=== PATIENT | male | born 1975 | race Caucasian/White ===

== ENCOUNTER 2018-08-15 05:34 | Day surgery (SDC) | payer MEDICAID, SELFPAY ==
--- NOTE | 2018-08-08 15:26 | NURSING ---
PT STATES NOT ABLE TO COME TO [facility] TO OBTAIN LABS/EKG PRIOR TO SCHEDULED SURGERY. INFORMED SURGERY MAY BE CANCELLED BY ANESTHESIA IF ABNORMAL RESULTS, DAY OF SURGERY./ IF NOT SAFE FOR ANESTHESIA.
[2018-08-15] VITALS (10 sets, daily range): BP systolic 113–173; BP diastolic 56–98; PULSE 55–72; RESP 16–18; TEMP 36.2–36.4; O2SAT 91–98; BMI 45.1
--- NOTE | 2018-08-15 05:45 | EKG12_ITS ---
Test Reason : PRE-OP Blood Pressure : / mmHG Vent. Rate : 060 BPM Atrial Rate : 060 BPM P-R Int : 166 ms QRS Dur : 094 ms QT Int : 398 ms P-R-T Axes : 014 051 032 degrees QTc Int : 398 ms Normal sinus rhythm Normal ECG No previous ECGs available Confirmed by ALAN RAPP, NORAH ([id number]), fan mail editor JODI BRIDGES ([id number] on 08/21/2018 1:14:26 PM Referred By: Vish Alarcon Confirmed By:NORAH PHILLIPS MD
[2018-08-15 06:45] LABS: Anion Gap 11 (5-15); BUN 21 mg/dL (7-18); BUN/Creat Ratio 19.1 RATIO (10-20); Chloride 104 mmol/L (98-107); EST Glomerular Filtration Rate 77 mL/min (>60); Est Glom Filt Rate - Afr Amer 93 mL/min (>60); Estimated Creatinine Clearance 82.91 ml/min; Glucose 115 mg/dL (74-106); Potassium 4.1 mmol/L (3.5-5.1); Sodium Level 141 mmol/L (136-145)
[2018-08-15] MEDS: Cefazolin 2 GM in 0.9% Normal Saline 100 ML IV (07:48)
[2018-08-15] MEDS: Bupiv/Epi 0.5% Mpf 30 ML Vial (08:18)
--- NOTE | 2018-08-15 09:00 | PCM.IMDPSTOP ---
Immediate Post-Op Note Date of Procedure: 08/15/18 Primary Surgeon/Physician: Vish Alarcon DO customer response representative: Andrew Aden Pre-Operative Diagnosis: SAIS, AC arthrosis, possible rotator cuff tear left shoulder Post-Operative Diagnosis: SAIS, AC arthrosis, no rotator cuff tear left shoulder, Type 2 SLAP lesion Surgery/Procedure Performed:: ASD, Kranthi procedure, intra-articular debridement Description of Surgical Findings:: see op note Estimated Blood Loss: minimal Specimen's removed: none Type of Anesthesia:: General, General/Regional ASA Class: ASA3 Severe Disease - Admit VTE Documentation VTE Present on Admission: No VTE Mechan Device Prophylaxis: SCD's, Thigh High NESTOR Hose VTE Pharm Prophylaxis ordered?: No Reason prophylaxis not ordered:: Treatment Not Indicated
--- NOTE | 2018-08-15 09:04 | OP.PN_ITS ---
Immediate Post-Op Note Date of Procedure: 08/15/18 Primary Surgeon/Physician: Vish Alarcon DO tilt wall supervisor: Andrew Aden Pre-Operative Diagnosis: SAIS, AC arthrosis, possible rotator cuff tear left shoulder Post-Operative Diagnosis: SAIS, AC arthrosis, no rotator cuff tear left shoulder, Type 2 SLAP lesion Surgery/Procedure Performed:: ASD, Kranthi procedure, intra-articular debridement Description of Surgical Findings:: see op note Estimated Blood Loss: minimal Specimen's removed: none Type of Anesthesia:: General, General/Regional ASA Class: ASA3 Severe Disease - Admit VTE Documentation VTE Present on Admission: No VTE Mechan Device Prophylaxis: SCD's, Thigh High NESTOR Hose VTE Pharm Prophylaxis ordered?: No Reason prophylaxis not ordered:: Treatment Not Indicated
--- NOTE | 2018-08-15 09:05 | PCM.OP.BLANK ---
Operative Report Date of Procedure: 08/15/18 Primary Surgeon/Physician: Vish Alarcon seat cover installer: Bebo Aden PA-C seat cover installer: Pre-Operative Diagnosis: SAIS, AC arthrosis, Type 2 SLAP tear, possible rotator cuff tear left shoulder Post-Operative Diagnosis: same with no rotator cuff tear Surgery/Procedure Performed: ASD, Kranthi, Intra-articular debridement Estimated Blood Loss: minimal Specimen's Removed: none Type of Anesthesia: general ASA Class: 3 Implants: [] Surgical Indications: [ ] Procedure Description: Patient was greeted in the preoperative area. Their [left ] shoulder was marked with surgical marker. Preoperative antibiotics were administered. The patient was then taken to the operating suite in a stable condition. After adequate anesthesia was obtained and it was secured there placed in standard beachchair position. All bony prominences were well-padded her head was secured in a beachchair positioner. The arm was then prepped and draped in the usual sterile fashion. Surgical timeout was performed surgery was commenced. Standard posterior viewing portal was made and 30? arthroscope was introduced into the glenohumeral joint. Anterior portal was made under direct visualization. Extensive debridement of the anterior capsule was performed evaluation of the shoulder itself was performed with the following findings: [There was a Type 2 SLAP tear noted. This was extensively debrided with a combination of a thermal wand and an arthroscopy shaver. The rotator cuff was intact. ]. The subacromial space was then entered and extensive debridement of the subacromial bursa was performed. The undersurface of the acromion was then debrided with a thermal wand. This did reveal a type II acromion. Subacromial decompression was then performed with a arthroscopic bur from anterolateral posteromedial create a type I acromion. When this was complete the wand was then utilized to debride the acromioclavicular joint. There were significant osteoarthritic changes. A distal clavicle resection was then performed removing approximately 5 mm of distal clavicle not violating the superior acromioclavicular ligament. The cuff was inspected and probed from the bursal surface and noted to be intact. The arthroscopy instruments and fluid were removed and the portals were closed with interrupted sutures of 4-0 nylon. A sterile dressing and sling were applied and the patient was extubated and transferred to the PACU in stable and satisfactory condition. My carpenter's assistant, Mr. Aden, played a vital role in this procedure. He assisted with positioning the patient. Maneuvered the arm to provide optimal visualization during the procedure and he closed the postoperative wounds.
--- NOTE | 2018-08-15 09:14 | OP.PCM_ITS ---
Operative Report Date of Procedure: 08/15/18 Primary Surgeon/Physician: Vish Alarcon internal controls specialist: Bebo Aden PA-C internal controls specialist: Pre-Operative Diagnosis: SAIS, AC arthrosis, Type 2 SLAP tear, possible rotator cuff tear left shoulder Post-Operative Diagnosis: same with no rotator cuff tear Surgery/Procedure Performed: JOSE RAMON, Kranthi, Intra-articular debridement Estimated Blood Loss: minimal Specimen's Removed: none Type of Anesthesia: general ASA Class: 3 Implants: [] Surgical Indications: [ ] Procedure Description: Patient was greeted in the preoperative area. Their [left ] shoulder was marked with surgical marker. Preoperative antibiotics were administered. The patient was then taken to the operating suite in a stable condition. After adequate anesthesia was obtained and it was secured there placed in standard beachchair position. All bony prominences were well-padded her head was secured in a beachchair positioner. The arm was then prepped and draped in the usual sterile fashion. Surgical timeout was performed surgery was commenced. Standard posterior viewing portal was made and 30? arthroscope was introduced into the glenohumeral joint. Anterior portal was made under direct vis ualization. Extensive debridement of the anterior capsule was performed evaluation of the shoulder itself was performed with the following findings: [There was a Type 2 SLAP tear noted. This was extensively debrided with a combination of a thermal wand and an arthroscopy shaver. The rotator cuff was intact. ]. The subacromial space was then entered and extensive debridement of the subacromial bursa was performed. The undersurface of the acromion was then debrided with a thermal wand. This did reveal a type II acromion. Subacromial decompression was then performed with a arthroscopic bur from anterolateral posteromedial create a type I acromion. When this was complete the wand was then utilized to debride the acromioclavicular joint. There were significant osteoarthritic changes. A distal clavicle resection was then performed removing approximately 5 mm of distal clavicle not violating the superior acromioclavicular ligament. The cuff was inspected and probed from the bursal surface and noted to be intact. The arthroscopy instruments and fluid were removed and the portals were closed with interrupted sutures of 4-0 nylon. A sterile dressing and sling were applied and the patient was extubated and transferred to the PACU in stable and satisfactory condition. My embroidery assistant, Mr. Aden, played a vital role in this procedure. He assisted with positioning the patient. Maneuvered the arm to provide optimal visualization during the procedure and he closed the postoperative wounds.
== END 2018-08-15 12:33 | disposition home or self-care (01) ==
LOC: SDC 05:35 → AC 05:36
PROVIDERS: Anesthesiology; Family Provider Nurse Practitioner Primary Care; PCP Nurse Practitioner Primary Care; Referring Provider Orthopaedic Surgery; Visit Provider Orthopaedic Surgery
PROC: (CPT 29827; principal; 2018-08-15 06:55)
DX: S43.432A Superior glenoid labrum lesion of left shoulder, initial encounter (principal); X58.XXXA Exposure to other specified factors, initial encounter
CPT/HCPCS: 01630; 29807; 29823; 29824; 64415; 36415; 80048; 93005; J7120; J2405; J3490